=== PATIENT | female | born 1955 | race Caucasian/White ===

== ENCOUNTER 2024-03-15 02:13 | Day surgery (SDC) | payer MEDICARE, SELFPAY ==
[2024-03-11 09:23] VITALS: BMI 24.7
--- NOTE | 2024-03-11 09:32 | PC.NURSE ---
Report to the Outpatient Waiting Room, entrance under the green pavilion located off [facility], at time _0830_ on date _[id number]_. Planned Procedure Time: _1030_. Time changes happen often and if your time is changed the preop area will call you the afternoon before. - You and your visitor will be asked to self-screen and do not enter if you have any COVID symptoms. - A mask is optional within the hospital at this time. Patients may have clear liquids (water, carbonated beverages, clear teas, apple juice) until 3 hours prior to surgery with a maximum of 20 ounces. - No food from midnight until time of surgery Take the following medications with a SIP of water the morning of surgery: ___Levothyroxine and Metoprolol DO NOT STOP ANY OF YOUR OTHER PRESCRIPTION MEDICATIONS PRIOR TO SURGERY ?EXCEPT THE FOLLOWING Medications to discontinue per physician ____Katina stopped Aspirin and Naproxen [id number] Date to take last dose Please no make-up, nail lithuanian, hairspray, perfume, deodorant, or body powder the day of surgery. No jewelry (including any body piercings) or valuables the day of surgery, leave them at home. Please take a shower or bath the night before, or the morning of, surgery with an antibacterial soap. Wear comfortable, loose fitting clothing. - Jewelry must be removed prior to entering the operating room. Rings and piercings that are not removed may be cut off. - The hospital will not accept responsibility for valuables. - Please leave all valuables, including medications, at home the day of surgery. If you are going home after surgery, a licensed crude oil driver must drive you home. - NO public transportation without another adult if you receive anesthesia. - We recommend that an adult stay with you for 24 hours following discharge. - We also recommend that you do not drive, make important decision, drink alcoholic beverages, or take any drugs that were not prescribed by your health care provider for at least 24 hours after your discharge time. Follow any additional instructions given to you from your surgeon. If you or anyone in your household have experienced Covid symptoms in the past week, please notify your surgeon or the nurse liaison at the phone number below for possible testing. Telephone instructions given to _Katina__and asked if any additional questions and then verbalized understanding. Patient advised to call surgeon office or pre surgery nurse liaison [phone] if any additional questions.
--- NOTE | 2024-03-14 14:10 | WPDANESEPPF ---
Anes - Initial Pre Proc Eval Procedure: Operation Date: 03/15/24 10:30 Proposed Procedures p Right Shoulder Rotator Cuff Repair Arthroscopic, Proceed as Indicated - Margarito Alas MD Date/Time: 03/14/24 14:10 Surgeon: Margarito Alas MD Pre Op Diagnosis: partial rotator cuff tear right shoulder Patient Data Age: 68 Gender: F Height: 1.57 m Weight: 61.4 kg Allergies Allergy/AdvReac Type Severity Reaction Status Date / Time codeine Allergy Unknown Headache Verified 03/11/24 09:21 methylprednisolone AdvReac Unknown Nausea and Verified 03/11/24 09:21 Vomiting Home Medications Medication Instructions Recorded Confirmed Type amitriptyline 50 mg tablet 50 mg PO QHS 02/17/23 03/15/24 History aspirin 81 mg tablet,delayed 81 mg PO DAILY 02/17/23 03/11/24 History release losartan 50 mg tablet 50 mg PO DAILY 02/17/23 03/15/24 History atorvastatin 80 mg tablet 80 mg PO DAILY 04/22/23 03/15/24 History levothyroxine 50 mcg capsule 50 mcg PO DAILY 01/13/24 03/15/24 History metoprolol succinate 25 mg 25 mg PO DAILY 01/13/24 03/15/24 History tablet,extended release 24 hr naproxen 500 mg tablet 500 mg PO BID #60 tabs 02/26/24 03/11/24 Rx omeprazole 20 mg capsule,delayed 20 mg PO DAILY 03/11/24 03/15/24 History release Patient hx anesthesia problems: other (has low BP during anesthesia) Family hx anesthesia problems: none Results Review: All pre-operative results and documents have been reviewed as part of the pre-operative evaluation. [facility] Past Medical History Medical History Elevated serum creatinine Elevated TSH History of bruising easily History of heart attack (~2020) History of stress test History of trigger finger Kidney disease Osteoporosis Surgical History Surgical History History of appendectomy History of breast biopsy x 2 History of carpal tunnel release History of dental surgery History of left knee surgery x 2 left knee (meniscus tear) History of rotator cuff surgery Right side Family History Family History Grandparent Family history of malignant neoplasm of breast in first degree relative Social History Social History Smoking status: Never smoker Smoking end date: 08/24/01 Alcohol intake: never Substance use: never Substance use type: does not use Do You Feel Safe in your Home?: Yes Lack of Transportation: No Lack of Food: Never True Current Housing: I Have Housing Concerned About Future Housing: No Difficulty Paying Gas/Electric Bills: No Difficulty Paying for Meds: No Currently Unemployed: No Education: High School Diploma/GED Difficulty w/ Childcare or Family Care: No Living arrangements: with family Spiritual care concerns: No Anes - Eval Final PreProcedure Day of Procedure 03/14/24 14:10 Patient weight: normal Heart: regular rate and rhythm Lungs: clear to auscultation Airway: Mallampati scale class II Neurological: alert and oriented Last oral intake: >/= 8 hours ASA classification: III Emergent: no Anesthetic plan: proceed Anesthesia type and monitoring: general ETT and standard monitoring Results Review: All pre-operative results and documents have been reviewed as part of the pre-operative evaluation. Informed Consent: The patient's anesthetic plan and its attendant risks and benefits were discussed with the patient/family/POA. Questions were solicited and answers provided to the satisfaction of the patient/family/POA.
[2024-03-15] VITALS (13 sets, daily range): BP systolic 111–150; BP diastolic 48–85; PULSE 59–72; RESP 12–20; TEMP 36; O2SAT 96–100
--- NOTE | 2024-03-15 07:09 | WPDHPUPDATE1 ---
History and Physical Update Update Date/Time: 03/15/24 07:09 History and Physical has been reviewed, including an updated exam of the patient. There are NO changes in the patient's condition. Risks, benefits, and alternatives have been discussed and questions answered. Patient agrees to proceed with procedure.
[2024-03-15] MEDS: ACETAMINOPHEN 500 MG TABLET 1000 MG PO (08:48)
[2024-03-15] MEDS: LACTATED RINGERS 1,000 ML 30 ML IV CONT ×2 (08:50→13:01)
[2024-03-15] MEDS: KETOROLAC 15 MG/ML VIAL (*BKC) IV PUSH (08:52)
[2024-03-15] MEDS: ceFAZolin 2 GM/D5W 50 ML 2 GM/50 ML BAG IVPB (10:42)
[2024-03-15] MEDS: EPINEPHrine HCL INJ 1 MG/ML AMPUL 3 MG IRRIGATION (11:32)
[2024-03-15] MEDS: BUPIVACAINE/EPINEPHRINE 0.5% 10 ML VIAL 30 ML INFILTRATE (11:33)
--- NOTE | 2024-03-15 13:37 | W.PM.PROC2 ---
Procedure Note - Detailed Date of Procedure 03/15/24 Pre-op Diagnosis Partial rotator cuff tear right shoulder Post-op Diagnosis Other (Right shoulder 1. Partial rotator cuff tear 2. Subacromial impingement 3. Biceps tendinosis 4. Degenerative arthritis) Procedure Performed Right shoulder 1. Arthroscopic rotator cuff repair 2. Arthroscopic subacromial decompression 3. Arthroscopic biceps tenotomy 4. Arthroscopic humeral chondroplasty Surgeon Margarito Alas MD Mirror Finishing Machine Operator Leslie Holland PA-C Anesthesia General and Regional ( interscalene block) Findings High grade partial articular tear easily completed to a small full thickness tear. Repaired with single bone tunnel and 3 sutures. Augmented with Regeneten collagen implant. Biceps tendinosis treated with tenotomy. Large full thickness chondral defect on the posterior humerus treated with chondroplasty, and removal of multiple small loose bodies through the shaver. Modest acromioplasty. Description of Procedure Preoperative antibiotics were given. An interscalene block was administered in the preoperative area. The patient was bought brought to the operating room. A general anesthetic was administered. The patient was carefully positioned in the beach chair position. The head and neck were carefully positioned. The non operative extremity was also carefully positioned. The shoulder was prepped and draped in the usual sterile fashion. Examination was performed. Standard posterior and anterior arthroscopic portals were established. Inflow achieved with the arthroscopic pump using saline and epinephrine. The glenohumeral joint was carefully inspected. Large defect was noted on the posterior humeral condyle. This was greater than 1 cm. Full-thickness defect with significant flaps. These were debrided to a stable margin. Multiple loose bodies which appeared to have come from that area were debrided from the joint. Minimal glenoid changes and labral changes. The biceps intra-articularly was severely frayed. Biceps tenotomy was performed. The articular supraspinatus showed high-grade partial tearing. There were some intact fibers superficially. The subscapularis was intact.. Attention was turned to the subacromial space. A complete bursectomy was performed. A modest acromioplasty was performed where the bone had showed evidence of irregularity and some slight pain laterally. Previous repair sutures could be seen in the more posterior cuff. This appeared to be healed. More anteriorly, which was previously marked from the articular side, there was a very thin area that was easily debrided to a small,sub cm, full-thickness tear. There was no retraction. A single bone tunnel was placed and 3 sutures were passed into the supraspinatus. The repair appeared joya and quite anatomic. The tissue quality was reasonably good. Given the fact that this was a revision it was elected to augment the repair with the collagen Regeneten implant. The medium size fit nicely along at the tendon involved tendon and was brought laterally just abutting the lateral suture tunnel with the suture knots. The tear configuration was carefully assessed. The arthroscopic instruments were removed. The wounds were closed with 3-0 Monocryl subcuticular suture and steri strips. There were no complications. A sling was applied and the patient brought to the recovery room. Physician assistant finance manager, Leslie Holland PA-C, required for surgery; including patient positioning, draping, arthroscopic camera operation, maintaining instrument position, suture retrieval, wound closure, and dressing and sling placement. Implants Regeneten collagen implant size medium. 5 PATT soft tissue anchors and 2 peek bone anchors. Estimated Blood Loss 10 Pathology None sent Complications No immediate complications Condition Stable Disposition PACU [facility] Billing Surgery - Charge Forward: Surgery Billing
[2024-03-15] MEDS: fentaNYL CITRATE INJ (*CRX) 100 MCG/2 ML VIAL 25 MCG IV PUSH ×2 (14:02→14:15)
--- NOTE | 2024-03-15 14:10 | SUR.PHASEI ---
Dr. Tran approached about patient potentially receiving a nerve block in recovery for pain control. Stated to continue with the IV fentanyl for pain control at this time.
[2024-03-15] MEDS: HYDROcodone/acetaminophen (*CRX) 5-325 MG TABLET 1 TAB PO (15:11)
== END 2024-03-15 16:20 | disposition home or self-care (01) ==
PROVIDERS: PCP Internal Medicine Infectious Disease; Visit Provider Orthopaedic Surgery
PROC: (CPT 29805; principal; 2024-03-15 10:30)
DX: M75.111 Incomplete rotator cuff tear or rupture of right shoulder, not specified as traumatic (principal); M75.41 Impingement syndrome of right shoulder; M75.21 Bicipital tendinitis, right shoulder; M19.011 Primary osteoarthritis, right shoulder; M81.0 Age-related osteoporosis without current pathological fracture; I25.2 Old myocardial infarction; Z79.82 Long term (current) use of aspirin
CPT/HCPCS: 29827; 29826; 29823; A9270; C1713; J0171; J0690; J1885; J2250; J2371; J2405; J2704; J3010; J7120

== ENCOUNTER 2025-03-29 07:58 | Outpatient (CLI) | payer MEDICARE, SELFPAY ==
--- NOTE | ~2025-03-29 | XR_ITS ---
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 No significant joint effusion. No frac ture or traumatic malalignment. No joint effusion. Impression: 1: Mild tricompartment osteoarthritis. Reviewed, dictated and finalized at location A. Impression: 1: Mild tricompartment osteoarthritis.
--- OUTSIDE RECORDS SUMMARY | 2025-03-29 08:04 | XMS_ITS | Clinical Summary ---
Author Organization [facility] Address [address] [place] [address] Care Team Providers Care Strategic Client Executive Name Role Phone Luciano Bell MD Primary Care Provider + [phone] Rosalinda Carcamo MD Unavailable James Wayne DO Unavailable [phone] Pal Tipton MD Unavailable [phone] Allergies Active Allergy Reactions Criticality Noted Date Comments Codeine Headache Low Tolerates morphine Methylprednisolone Nausea & Vomiting Low Medications aspirin 81 mg enteric coated tablet TAKE 1 TABLET BY MOUTH EVERY DAY 90 tablet 021 Active triamcinolone (KENALOG) 0.1 % ointmentIndicatio ns:Acute vulvitis Apply topically 2 (two) times a day as needed for irritation 30 g 3 023 Active omeprazole (PriLOSEC) 20 mg capsuleIndication s:Gastroesophagea l reflux disease without esophagitis TAKE 1 CAPSULE BY MOUTH EVERY DAY 90 capsule 1 025 Active metoprolol XL (TOPROL-XL) 50 mg extended release tabletIndications :Essential hypertension TAKE 1/2 TABLET BY MOUTH DAILY 45 tablet 2 025 Active levothyroxine (SYNTHROID) 75 mcg tablet Take 1 tablet (75 mcg total) by mouth mobile tester before breakfast 30 tablet 2 025 Active losartan (COZAAR) 25 mg tablet Take 1 tablet (25 mg total) by mouth 2 (two) times a day 180 tablet 3 025 2025 Active amitriptyline (ELAVIL) 50 mg tabletIndications :Periodic headache syndrome, not intractable TAKE 1 TABLET BY MOUTH EVERY DAY AT NIGHT 90 tablet 1 025 Active atorvastatin (LIPITOR) 80 mg tabletIndications :Mixed hyperlipidemia TAKE 1 TABLET BY MOUTH EVERY DAY 90 tablet 1 025 Active atorvastatin (LIPITOR) 80 mg tabletIndications :Mixed hyperlipidemia TAKE 1 TABLET BY MOUTH EVERY DAY 90 tablet 1 025 2024 Discontinued amoxicillin (AMOXIL) 500 mg tablet/capsule Take 1 tablet/capsul e (500 mg total) by mouth 3 (three) times a day 15 tablet/caps ule 025 2024 Discontinued(P atient Reported) ciprofloxacin (CILOXAN) 0.3 % ophthalmic solutionIndicatio ns:Chronic diffuse otitis externa of right ear 7 drops into Right EAR, NOT EYE, twice daily for 14 days 10 mL 1 025 2024 Discontinued(T herapy completed) Active Problems Problem Noted Date Diagnosed Date Chronic diffuse otitis externa of right ear 04/2025 Assessment & Plan (03/22/2025 11:32 AM CDT): Film removed from the right ear today Follow up as needed Avoid ear cleaning techniques Avoid water to ears Vertigo of central origin, unspecified lateralit y 03/01/2025 Right ear pain 12/09/2024 Assessment & Plan (12/09/2024 8:46 PM CDT): DDX INCLUDE OTITIS MEDIA/ EXTERNA DC EAR DROPS ( NOT HELPING ) AMOX 500 MG PO TID FOR FIVE DAYS Benign paroxysmal positional vertigo due to bilateral vestibular disorder 06/25/2024 Assessment & Plan (12/24/2024 3:27 PM CDT): JACINTO CHHAYA ELIZALDEPayton MELISA WAS POSITIVE HEARING EVAL REVIEWED REFERRED TO ENT HABITUATION EXERCISES DISCUSSED TODAY Assessment & Plan (06/25/2024 4:22 PM CDT): EPLYS MANUORTEGAE WAS POSITIVE HABITUATION EXERCISES TAUGHT ARRANGE HEARING EVAL CAROTID DOPPLER WAS ARRANGE Right hip pain 06/25/2024 Assessment & Plan (06/25/2024 4:23 PM CDT): ARRANGE X RAY OF THE L SPINE AND RIGHT IP Acute pain of right shoulder 12/03/2023 Assessment & Plan (01/05/2024 2:16 PM CDT): Pt has f/u dr david Mri and x ray was reviewed Assessment & Plan (12/03/2023 1:32 PM CDT): For about two weeks now after a fall S/p prior rotator cuff surgery Tests and exams are c/w impingment syndrome Will arrange x ray / and PT / mri of the right shoulder Chest pain, unspecified type 10/30/2023 Hypertensive urgency 10/30/2023 Drug reaction 02/05/2022 Encounter for Medicare annual wellness exam 02/2022 Overview (10/28/2021): Added automatically from request for surgery [id number] Assessment & Plan (07/12/2024 6:33 AM COLLAR BAND CREASER): IMMUNIZATIONS WERE REVIEWED CAD CHRONIC NON OBSTRUCTING NO CHEST PAIN OR SOB GOAL LDL IS UNDER 70 ESSENTIAL HTN GOAL BP IS 130/80 OR UNDER LOW NA DIET NO COGNTIVE DECLINE NOTCIED MIXED HYPERLIDEMIA GOAL LDL IS UNDER 70 MAMMOGRAM / COLONSCOPY UPTODATE /BMD ARRANGED GERD WITHUOT ESOPHGITS ON PPI CKD STAGE 3B WITH A E GFR UNDER 60 AVOID ALL NEPHROTOXIC DRUGS Dysphagia 10/28/2021 Overview (10/28/2021): Added automatically from request for surgery [id number] Spondylosis of cervical joint without myelopathy 08/26/2021 Cervical radiculopathy 08/26/2021 Dilated cardiomyopathy 08/01/2021 Assessment & Plan (08/01/2021 9:20 AM COLLAR BAND CREASER): Initial working diagnosis was the patient may have takotsubo syndrome. However, 2-3 weeks after her hospital discharge her symptoms have persisted. I plan to re- evaluate initially with proBNP if this has not normalized we will continue to advance her systolic CHF treatments. I have doubled her Entresto dose and in the future would look at exchanging metoprolol for carvedilol, adding an aldosterone antagonist and SGLT 2 inhibitor. Takotsubo cardiomyopathy 07/17/2021 Assessment & Plan (07/17/2021 7:01 AM COLLAR BAND CREASER): Cardiac catheterization 07/16 -Left ventriculogram showed anterolateral diaphragmatic akinesis severe apical hypokinesis. This consistent takotsubo cardiomyopathy. Ejection fraction 35-40% NSTEMI (non-ST elevated myocardial infarction) 1 09/15/2020 Assessment & Plan (07/17/2021 7:03 AM COLLAR BAND CREASER): -Cardiology consulted rec. pain control, topical nitrates, beta-javi, lovenox, keep patient NPO -Echocardiogram pending -heart cath planned 07/16 -Ejection fraction is visually estimated at 35-40 %. Normal right ventricular systolic pressure. Estimated peak RVSP is 25 mmHg. Mild tricuspid regurgitation. Assessment & Plan (07/16/2021 1:21 PM COLLAR BAND CREASER): -Cardiology consulted rec. pain control, topical nitrates, beta-javi, lovenox, keep patient NPO -Echocardiogram pending -heart cath planned 07/16 Periodic headache syndrome, not intractable 06/25 Assessment & Plan (07/16/2021 1:29 PM COLLAR BAND CREASER): Continue home meds amitriptyline 75 LVH (left ventricular hypert rophy) due to hypertensive disease, without heart failure 08/01/2020 Assessment & Plan (07/16/2021 1:23 PM COLLAR BAND CREASER): History of LVH -control BP Continue home med-metoprolol 5 mg q.d. --added losartan 100 mg q.d. Essential hypertension 01/07/2014 Overview (11/26/2016): Hypertension Assessment & Plan (01/09/2025 12:46 PM CDT): Goal bp is 130/80 or under Low na diet Assessment & Plan (12/24/2024 3:28 PM CDT): GOAL BP IS 130/80 OR UNDER Assessment & Plan (06/25/2024 4:23 PM CDT): GOAL BP IS 130/80 OR UNDER Assessment & Plan (01/05/2024 2:15 PM CDT): Bp is good Goal is 130/80 or less Low na diet Assessment & Plan (07/16/2021 1:24 PM COLLAR BAND CREASER): -metoprolol 5 mg q.d. -added losartan 100 mg q.d. Assessment & Plan (08/01/2020 10:59 AM COLLAR BAND CREASER): Patient's blood pressure appears to be under adequate control with her current medical regimen. I see no need for alteration. Gastroesophageal reflux disease without esophagi tis 01/07/2014 Overview (11/26/2016): GERD (gastroesophageal reflux disease) Assessment & Plan (07/16/2021 1:24 PM COLLAR BAND CREASER): The patient has a history of GERD -pantoprazole 40 mg q.d. Mixed hyperlipidemia 01/07/2014 Overview (11/29/2016): Hyperlipidemia Assessment & Plan (01/05/2024 2:16 PM CDT): Flp and ldl is ok Lft is nl Continue liptior Assessment & Plan (07/16/2021 1:24 PM COLLAR BAND CREASER): Atorvastatin 40 mg q.d. Resolved Problems Problem Noted Date Diagnosed Date Resolved Date Occipital neuralgia of left side 08/26/2021 09/10/2021 Acute coronary syndrome with high troponin 07/16/2021 08/01/2021 Assessment & Plan (07/16/2021 1:27 PM COLLAR BAND CREASER): History of NE 15 years ago without stent placement patient only had moderate statin at home. -added high-intensity statin atorvastatin 40 mg -added losartan 100 mg -topical nitroglycerin -aspirin 324 mg Encounters Date Type Department Care Team Description 03/22/2025 11:15 AM CDT Office Visit [facility] - [address] [place] [address] Thais Stock, Chronic diffuse otitis externa of right ear (Primary Dx) 03/15/2025 3:00 PM CDT Office Visit [facility] [address] [place] [address] A [address] [place] [phone] Judy Beltran NP Skin neoplasm (Primary Dx); Nasal lesion 03/13/2025 Results Follow-Up [facility] - [address] [place] [address] Emely Maldonado MA MRI Internal Auditory Canal incl Brain W WO Contrast 03/09/2025 10:53 AM CDT - 03/09/2025 11:59 PM CDT Hospital Encounter [facility] [address] [place] [address] Vertigo of central origin, unspecified laterality Discharge Disposition: Discharge to home or self care 03/01/2025 11:15 AM CDT Office Visit [facility] - [address] [place] [address] Thais Stock, Chronic diffuse otitis externa of right ear (Primary Dx); Vertigo; Vertigo of central origin, unspecified laterality 01/26/2025 10:00 AM CDT Office Visit [facility] [employer] [facility] at [address] [place] [phone] Pal Tipton MD Dilated cardiomyopathy (HCC) (Primary Dx); Essential hypertension 01/25/2025 Telephone [facility] [address] [facility] [address] [place] [address] Luciano Bell MD 01/09/2025 10:15 AM CDT Office Visit [facility] [address] [place] [address] Luciano Bell MD Essential hypertension (Primary Dx); Mixed hyperlipidemia; Osteoporosis, unspecified osteoporosis type, unspecified pathological fracture presence 01/02/2025 9:00 AM CDT Lab [facility] [address] [place] [address] Essential hypertension 12/28/[address] [facility] [address] [place] [address] [address] [place] [address] Danielle Henrandez Au.D. Benign paroxysmal positional vertigo, unspecified laterality (Primary Dx) 12/28/[address] [facility] [address] [place] [address] 11[address] [place] [address] [place] [id number] Danielle Hernandez Au.DJanki 12/28/[address] [facility] [address] [place] [address] [address] [place] [address] [place] [phone] JavisDanielle Au.D. 12/28/2024 Telephone [facility] [address] [place] [address] Luciano Bell MD from Last 3 Months Immunizations Immunization Administration Dates Next Due Influenza, Quadrivalent, Hig h Dose, Preservative Free, Intrr 07/02/2023,07/02/2022,06/04/2021 Influenza, Quadrivalent, Spl it, Intramuscular 07/12/2015 Influenza, Quadrivalent, Spl it, Preservative Free, Intramuscular 05/28/2020 Influenza, Trivalent, High D ose, Split, Preservative Free, Intramuscular 06/24/2024 Influenza, Trivalent, IM (MDV) 06/29/2014,2012 Pfizer SARS-CoV-2 Monovalent Vaccination (12+ Yrs) PURPLE 08/13/2021,10/18/2020 Pfizer Sars-Cov-2 Bivalent V accination (12+ YRS) 07/11/2022 Pneumococcal Conjugate PCV 13 07/23/2021 Pneumococcal Polysaccharide PPV23 10/21/2022 Tdap 08/08/2013 ZOSTER Recombinant 12/02/2024 Surgical History Surgery Date Site/Laterality Comments TRIGGER FINGER RELEASE 2 times CARPAL TUNNEL RELEASE 08/24/1999 - 08/23/2000 BREAST BIOPSY twice, for benign lumps TUBAL LIGATION 08/24/1979 - 08/23/1980 SOFT TISSUE CYST EXCISION 08/24/2004 - 08/23/2005 Right wrist cyst ROTATOR CUFF REPAIR 08/24/2001 - 08/23/2002 Right KNEE ARTHROSCOPY 08/24/2014 - 08/23/2015 Bilateral internal derangement of the knees: arthroscopic surgeries in each knee LAPAROSCOPIC APPENDECTOMY 08/24/2015 - 08/23/2016 APPENDECTOMY CARDIAC CATHETERIZATION COLONOSCOPY 07/24/2017 - 08/23/2017 Medical History Medical History Date Comments Hypertension Migraine headache GERD (gastroesophageal reflux disease) Hyperlipidemia Myocardial infarction (HCC) 07/2021 Dysphagia Family History Medical History Relation Name Comments Coronary artery disease Father Stu Heart attack Father Stu Hypertension Father Stu Prostate cancer Father Stu COD Breast cancer Maternal Grandmother Emphysema Mother Osteoporosis Mother Other Sister 1 Coronary artery disease Sister 2 Relation Name Status Comments Father Stu Maternal Grandmother Mother Sister 1 Sister 2 Social History Tobacco Use Types Packs/Day Years Used Date Smoking Tobacco: Former Cigarettes Q uit: 2001 Smokeless Tobacco: Never Tobacco Cessation:Counseling Given: Not Answered Alcohol Use Standard Drinks/Week Comments Not Currently 0 (1 standard drink = 0.6 oz pur e alcohol) AUDIT-C Answer Date Recorded Q1: How often do you have a drink containing alcohol? Never 02/05/2022 Q2: How many drinks containi ng alcohol do you have on a typical day when you are drinking? Patient does not drink Q3: How often do you have si x or more drinks on one occasion? Never 02/05/2022 PHQ-2 Answer Date Recorded PHQ-2 Total Score (If total score is 3 or more points, staff should administer the PHQ-9) 1 07/11/2024 Personal Safety Answer Date Recorded Have you ever been in or are you currently in a harmful physical or emotional relationship or is someone making you feel afraid or unsafe? Denies 10/29/2023 Comments No Sex and Gender Information Value Date Recorded Sex Assigned at Not on file Legal Sex Female 1:05 PM COLLAR BAND CREASER Gender Identity Not on file Sexual Orientation Not on file Occupation Industry Job Start Date Job End Date homemaker Not on file Not on file Not on file Obstetrics History Para Term AB IAB SAB Ectopic Multiple Livin g Live Births 2 2 2 0 0 0 0 0 0 2 2 Date Outcome GA Total Labor Labor/2nd/3rd Weight Sex Type Anes PTL Diane A1 A5 Name Clin Term Term Last Filed Vital Signs Vital Sign Reading Time Taken Comments Blood Pressure 111/67 03/01/2025 10:57 AM CDT Pulse 78 03/01/2025 10:57 AM CDT Temperature 36.9 C (98.4 F) 01/09/2025 10:23 AM CDT Respiratory Rate 18 03/01/2025 10:57 AM CDT Oxygen Saturation 92% 03/01/2025 10:57 AM CDT Inhaled Oxygen Concentration - - Weight 60.3 kg (133 lb) 03/22/2025 11:02 AM CDT Height 154.9 cm (5' 0.98) 03/22/2025 11:02 AM C DT Body Mass Index 25.14 03/22/2025 11:02 AM CDT Plan of Treatment Health Maintenance Due Date Last Done Comments Hepatitis C Screening 1955 Hepatitis B Screening 11/11/1973 DTaP/Tdap/Td Vaccine (2 - Td or Tdap) 08/08/2023 08/08/2013 Covid-19 Vaccine (2023-2 5 season) 2024 08/03/2023, 07/11/2022, 08/13/2021, Additional history exists Influenza Vaccine (#1) 2025 , 07/02/2023, 07/02/2022, Additional history exists Depression Screening 07/11/2025 07/11/2024, 06/24/2024, 10/21/2022 Fall Risk Assessment 07/11/2025 07/11/2024, 10/30/2023, 10/21/2022 Well Visit 65+ 07/11/2025 07/11/2024, 09/25, 08/26/2021, Additional history exists Breast Cancer Screening-Mammogram 09/06/2025 09/06/2024, 08/13/2023, 08/11/2022 Osteoporosis Screening-Bone Density Scan 08/26/2026 08/26/2024, 07/01/2022 Colon Cancer Screening-Colonoscopy 12/20/2031 12/19/2021, 06/09/2016, 06/09/2016 Colon Cancer Screening-CT Colonography Discontinued 12/19/2021, 06/09/2016, 06/09/2016 Colon Cancer Screening-DNA Stool Discontinued 12/19/2021, 06/09/2016, 06/09/2016 Colon Cancer Screening-FIT Discontinued 12/19, 06/09/2016, 06/09/2016 Colon Cancer Screening-Sigmoidoscopy Discontinued 12/19/2021, 06/09/2016, 06/09/2016 Pneumococcal vaccine 65+ Completed 10/21/2022, 06/26 Zoster Vaccine Completed 02/02/2025, 12/02/2024 Procedures Procedure Name Priority Date/Time Associated Diagnosis Comments MRI INTERNAL AUDITORY CANAL INCL BRAIN W WO CONTRAST Schedule Routine, Read Routine (OP Routine) 03/09/2025 11:48 AM CDT Vertigo of central origin, unspecified laterality ECG 12-LEAD Routine 01/26/2025 10:02 AM CDT Dilated cardiomyopathy (HCC) Essential hypertension EGFR Routine 01/02/2025 8:51 AM CDT Essential hypertension DIFFERENTIAL AUTO Routine 01/02/2025 8:5 1 AM CDT Essential hypertension CBC WITH AUTO DIFFERENTIAL Routine 01/02/2025 8:51 AM CDT Essential hypertension COMPREHENSIVE METABOLIC PANEL Routine 01/02/2025 8:51 AM CDT Essential hypertension LIPID PANEL Routine 01/02/2025 8:51 AM CDT Essential hypertension TSH Routine 01/02/2025 8:51 AM CDT Essential hypertension SCREENING MAMMOGRAM BILATERAL W LELAND Schedule Routine, Read Routine (OP Routine) 09/06/2024 9:21 AM COLLAR BAND CREASER Encounter for screening mammogram for breast cancer DEXA AXIAL SKELETON BONE DENSITY 1 OR MORE SITES Schedule Routine, Read Routine (OP Routine) 08/26/2024 12:30 PM COLLAR BAND CREASER Menopause COLONOSCOPY 12/19/2021 10:00 AM CDT from Last 3 Months or Most Recently Relevant to Health Maintenance Results * MRI Internal Auditory Canal incl Brain W WO Contrast (03/09/2025 11:48 AM CDT) Anatomical Region Laterality Modality Head and Neck N/A Magnetic Resonan ce 03/09/2025 11:5 8 AM CDT Narrative 03/09/2025 12:04 PM CDT EXAM DESCRIPTION: MRI BRAIN WITHOUT AND WITH CONTRAST (IAC PROTOCOL) REASON FOR STUDY: Patient reports chronic vertigo since right ear infection July 2024. No provided focal neurologic deficits. No provided history of trauma. No provided past medical or surgical history. TECHNIQUE: Multiplanar imaging includes non-contrasted T1, T2, FLAIR, gradient echo/susceptibility-weighted images, diffusion with ADC map and post gadolinium contrast sequences. Additional thin slice images with and without gadolinium contrast acquired in the posterior fossa. Images stored on PACS. CONTRAST TYPE/DOSE: 12 mL Dotarem injected via IV site without reported incident. COMPARISON: CT head without contrast 11/03/2024 and 10/29/2023; DEXA scan 08/26/2024: Reported as osteoporosis; FINDINGS: IAC's: No vestibular schwannoma. Normal cerebellopontine angles. CEREBRUM: No acute intra-axial hemorrhage. No edema, mass effect, midline shift, or herniation. No abnormal enhancement. Slight senescent mineralization of the lentiform nuclei. WHITE MATTER: There is mild periventricular-subcortical T2/FLAIR hyperintense white matter disease, nonspecific, though likely secondary to chronic microvascular ischemia. POSTERIOR FOSSA: Brainstem and cerebellum are unremarkable. No abnormal enhancement. DIFFUSION IMAGING: No restricted diffusion to suggest acute/subacute ischemia or infarct. EXTRAAXIAL SPACES: No extra-axial fluid collection. No extra-axial mass. No abnormal enhancement. BRAIN VOLUME: Mild cerebral volume loss without predilection. PITUITARY: Unremarkable. VASCULATURE: No flow disturbance evident. CALVARIUM: Unremarkable. ORBITS: No acute abnormality. Ocular lenses and globes normal in conformation and position. PARANASAL SINUSES AND MASTOIDS: No significant mucosal thickening and no fluid levels of the paranasal sinuses. Mastoid air cells well aerated. OTHER: No other significant finding. IMPRESSION: No acute intracranial process with chronic findings on MRI brain with attention to the IAC's. THIS IS AN ELECTRONICALLY VERIFIED FINAL REPORT 03/09/2025 12:04 PM - Electronically signed by Dewayne Shi M.D. JCARLOS: JCARLOS Report ID: [id number] Reading Location: [id number] Procedure Note Dewayne Shi MD - 03/09/2025 EXAM DESCRIPTION: MRI BRAIN WITHOUT AND WITH CONTRAST (IAC PROTOCOL) REASON FOR STUDY: Patient reports chronic vertigo since right earinfection July 2024. No provided focal neurologic deficits. No providedhistory of trauma. No provided past medical or surgical history. TECHNIQUE: Multiplanar imaging includes non-contrasted T1, T2, FLAIR,gradient echo/susceptibility-weighted images, diffusion with ADC map and post gadolinium contrast sequences. Additional thin slice images with andwithout gadolinium contrast acquired in the posterior fossa. Images stored onPACS. CONTRAST TYPE/DOSE: 12 mL Dotarem injected via IV site withoutreported incident. COMPARISON: CT head without contrast 11/03/2024 and 10/29/2023; DEXAscan 08/26/2024: Reported as osteoporosis; FINDINGS: IAC's: No vestibular schwannoma. Normal cerebellopontine angles. CEREBRUM: No acute intra-axial hemorrhage. No edema, mass effect,midline shift, or herniation. No abnormal enhancement. Slight senescent mineralization of the lentiform nuclei. WHITE MATTER: There is mild periventricular-subcortical T2/FLAIR hyperintense white matter disease, nonspecific, though likely secondaryto chronic microvascular ischemia. POSTERIOR FOSSA: Brainstem and cerebellum are unremarkable. No abnormal enhancement. DIFFUSION IMAGING: No restricted diffusion to suggest acute/subacute ischemia or infarct. EXTRAAXIAL SPACES: No extra-axial fluid collection. No extra-axialmass. No abnormal enhancement. BRAIN VOLUME: Mild cerebral volume loss without predilection. PITUITARY: Unremarkable. VASCULATURE: No flow disturbance evident. CALVARIUM: Unremarkable. ORBITS: No acute abnormality. Ocular lenses and globes normal in conformation and position. PARANASAL SINUSES AND MASTOIDS: No significant mucosal thickening and no fluid levels of the paranasal sinuses. Mastoid air cells well aerated. OTHER: No other significant finding. IMPRESSION: No acute intracranial process with chronic findings on MRI brain with attention to the IAC's. THIS IS AN ELECTRONICALLY VERIFIED FINAL REPORT 03/09/2025 12:04 PM - Electronically signed by Dewayne Shi M.D. JCARLOS: JCARLOS Report ID: [id number] Reading Location: [place] [address] Thais Stock DO IMG MRI PROCEDURES Final Res ult * ECG 12 lead (01/26/2025 10:02 AM CDT) Pal Tipton MD ECG ORDERABLES Final Result * (ABNORMAL) eGFR (01/02/2025 8:51 AM CDT) eGFR 47(L) >=60 mL/min/1. 73 m2 Comment: Interpretive Data Reference Interval Normal >/= 90 mL/min/1.73m2 Mildly decreased* 60 - 89 mL/min/1.73m2 Mildly to moderately decreased 45 - 59 mL/min/1.73m2 Moderately to severely decreased 30 - 44 mL/min/1.73m2 Severely decreased 15 - 29 mL/min/1.73m2 Kidney Failure < 15 mL/min/1.73m2 *Relative to young adult level Estimated glomerular filtration rate is determined by the 2020 CKD-EPI equation recommended by the National Kid[employer] (A Unifying Approach to GFR Estimation: Recommendations of the NKF-ASK Task Force on Reassessing the Inclusion of Race in Diagnosing Kidney Disease, JASN 2020). The CKD-EPI equation should not be used for patients with unstable renal function and has not been validated in children and those over 70. Current interpretive data was last reviewed 2021. Testing performed by: [address] [address] Blood 01/02/2025 8:51 AM CDT 01/02/2025 3:44 PM CDT us Luciano Bell MD LAB BLOOD ORDERABLES Final Result [address] Department [place] [address] * Differential, auto (01/02/2025 8:51 AM CDT) Neutrophil abs 3.58 1.50 - 6.50 K/cumm Comment:Testing performed by : [address] [address] Imm gran abs 0.02 0.00 - 0.10 K/cumm [facility] Comment:Testing performed by : [address] [address] Lymphocyte abs 1.75 0.80 - 3.30 K/cumm [facility] Comment:Testing performed by : [address] [address] Monocyte abs 0.50 0.20 - 0.80 K/cumm [facility] Comment:Testing performed by : [address] [address] Eosinophil abs 0.29 0.00 - 0.50 K/cumm [facility] Comment:Testing performed by : [address] [address] Basophil abs 0.07 0.00 - 0.10 K/cumm [facility] Comment:Testing performed by : [address] [address] Neutrophil pct 57.6 % CERNER Comment: Interpretive Data Percent cell count reference ranges are not reported, since discordance with absolute values may lead to misinterpretation of CBC data. Current Interpretive Data was last revised on 2017. Testing performed by: [address] [address] Imm gran pct 0.3 % CERNER Comment: Interpretive Data Percent cell count reference ranges are not reported, since discordance with absolute values may lead to misinterpretation of CBC data. Current Interpretive Data was last revised on 2017. Testing performed by: [facility], [address] [place] [address]., [address] Lymphocyte pct 28.2 % CERNER Comment: Interpretive Data Percent cell count reference ranges are not reported, since discordance with absolute values may lead to misinterpretation of CBC data. Current Interpretive Data was last revised on 2017. Testing performed by: [address] [address] Monocyte pct 8.1 % CERNER Comment: Interpretive Data Percent cell count reference ranges are not reported, since discordance with absolute values may lead to misinterpretation of CBC data. Current Interpretive Data was last revised on 2017. Testing performed by: [facility], [address] [place] [address]., [address] Eosinophil pct 4.7 % CERNER Comment: Interpretive Data Percent cell count reference ranges are not reported, since discordance with absolute values may lead to misinterpretation of CBC data. Current Interpretive Data was last revised on 2017. Testing performed by: [address] [address] Basophil pct 1.1 % CERNER Comment: Interpretive Data Percent cell count reference ranges are not reported, since discordance with absolute values may lead to misinterpretation of CBC data. Current Interpretive Data was last revised on 2017. Testing performed by: [address] [address] Blood 01/02/2025 8:51 AM CDT 01/02/2025 1:55 PM CDT us Luciano Bell MD LAB BLOOD ORDERABLES Final Result MORALES RASHID Andrey Reddy Department [place] [address] * (ABNORMAL) CBC with auto differential (01/02/2025 8:51 AM CDT) WBC 6.21 3.80 - 9.90 K/cumm Comment:Testing performed by : [address], [address] Hgb 11.7(L) 11.9 - 15.5 g/dL CERNER CH Comment:Testing performed by : [address], [address] Hct 38.0 35.6 - 45.5 % CERNER CH Comment:Testing performed by : [address], [address] Plt 235 150 - 400 K/cumm CERNER CH Comment:Testing performed by : [address], [address] MPV 9.4 9.1 - 12.3 fL CERNER CH Comment:Testing performed by : [address], [address] RBC 4.30 3.90 - 5.20 M/cumm CERNER CH Comment:Testing performed by : [address], [address] MCV 88.4 81.3 - 96.4 fL CERNER CH Comment:Testing performed by : [address], [address] MCH 27.2 27.1 - 33.3 pg CERNER CH Comment:Testing performed by : [address], [address] MCHC 30.8(L) 32.3 - 35.7 g/dL CERNER CH Comment:Testing performed by : [address], [address] RDW CV 14.9 11.1 - 14.9 % CERNER CH Comment:Testing performed by : [address], [address] RDW SD 47.9 35.7 - 48.1 fL CERNER CH Comment:Testing performed by : [address], [address] NRBC abs 0.00 0.00 - 0.01 K/cumm CERNER CH Comment:Testing performed by : [address], [address] Blood 01/02/2025 8:51 AM CDT 01/02/2025 1:55 PM CDT Luciano Bell MD LAB BLOOD ORDERABLES Final Result Performing Organization Address City/[facility] Co de Phone Number MORALES [address] [facility] [place] [address] * (ABNORMAL) TSH (01/02/2025 8:51 AM CDT) Thyroid Stimulating Hormone 4.55(H) 0.30 - 4.20 mcIUnit/mL Comment:Testing performed by : [facility], [address] [place] [address]., [address] Blood 01/02/2025 8:51 AM CDT 01/02/2025 1:55 PM CDT Luciano Bell MD LAB BLOOD ORDERABLES Final Result Performing Organization Address [facility] de Phone Number MORALES [facility] Department [place] [address] * Lipid panel (01/02/2025 8:51 AM CDT) Cholesterol 167 30 - 199 mg/dL Comment: Interpretive Data Ages < or = 19 years Acceptable: <170 mg/dL Borderline high: 170-199 mg/dL High: >or= 200 mg/dL Ages > or = 20 years Desirable: <200 mg/dL Borderline high: 200-239 mg/dL High: >or= 240 mg/dL Literature References: 1. Expert Panel on Integrated Guidelines for Cardiovascular Health and Risk Reduction in Children and Adolescents. Pediatrics 2011;128:S213 2. NCEP Expert Panel. Circulation 2004;110:227 Current Interpretive Data was last revised on 2018. Testing performed by: [facility], [address] [place] [address]., [address] Triglycerides 129 <=149 mg/dL MORALES Comment: Interpretive Data Ages < or = 9 years Acceptable: <75 mg/dL Borderline high: 75-99 mg/dL High: >or= 100 mg/dL Ages 10 to 20 years Acceptable: <90 mg/dL Borderline high: 90-129 mg/dL High: >or= 130 mg/dL Ages > or = 20 years Desirable: <150 mg/dL Borderline high: 150-199 mg/dL High: 200-499 mg/dL Very high: >or= 499 mg/dL Literature References: 1. Expert Panel on Integrated Guidelines for Cardiovascular Health and Risk Reduction in Children and Adolescents. Pediatrics 2011;128:S213 2. NCEP Expert Panel. Circulation 2004;110:227 Current Interpretive Data was last revised on 2018. Testing performed by: [address] [address] HDL 40 >=40 mg/dL [facility] Comment: Interpretive Data Ages < or = 19 years Acceptable: >45 mg/dL Borderline low: 40-45 mg/dL Low: <40 mg/dL Ages > or = 20 years Desirable: >or= 60 mg/dL Low: <40 mg/dL Literature References: 1. Expert Panel on Integrated Guidelines for Cardiovascular Health and Risk Reduction in Children and Adolescents. Pediatrics 2011;128:S213 2. NCEP Expert Panel. Circulation 2004;110:227 Current Interpretive Data was last revised on 2018. Testing performed by: [address] [address] LDL, calculated 104 <=129 mg/dL MORALES Comment: Interpretive Data Ages < or = 19 years Acceptable: <110 mg/dL Borderline high: 110-129 mg/dL High: >or= 130 mg/dL Ages > or = 20 years Optimal: <100 mg/dL Near optimal: 100-129 mg/dL Borderline high: 130-159 mg/dL High: >160 mg/dL Calculated using the Gamaliel LDL-C estimating equation. This equation was implemented on 2024. Prior to this date LDL-C was estimated using the Friedewald equation. Literature References: 1. Expert Panel on Integrated Guidelines for Cardiovascular Health and Risk Reduction in Children and Adolescents. Pediatrics 2011;128:S213 2. NCEP Expert Panel. Circulation 2004;110:227 3. Gamaliel Stone al. JOSSE Cardiol. 2020 December 22;5(5):540-548. doi: 10.1001/jamacardio.2020.0013 Current Interpretive Data was last revised on 2024. Testing performed by: [address] [address] Non-HDL Cholesterol 127 mg/dL CERNER CH Comment: Interpretive Data Ages < or = 19 years Acceptable: <120 mg/dL Borderline high: 120-144 mg/dL High: >145 mg/dL Ages > or = 20 years When triglycerides are >200 mg/dL, Non-HDL cholesterol is a secondary target of therapy with treatment goals that are 30 mg/dL greater than the LDL cholesterol target. Literature References: 1. Expert Panel on Integrated Guidelines for Cardiovascular Health and Risk Reduction in Children and Adolescents. Pediatrics 2011;128:S213 2. NCEP Expert Panel. Circulation 2004;110:227 Current Interpretive Data was last revised on 2018. Testing performed by: [address] [address] Chol/HDL ratio 4 CERNER Comment:Testing performed by : [address] [address] Blood 01/02/2025 8:51 AM CDT 01/02/2025 1:55 PM CDT us Luciano Bell MD LAB BLOOD ORDERABLES Final Result [address] Department [place] [address] * (ABNORMAL) Comprehensive metabolic panel (01/02/2025 8:51 AM CDT) Sodium 140 135 - 145 mmol/L Comment:Testing performed by : [address] [address] Potassium, pl 4.1 3.3 - 4.9 mmol/L CERNER Comment:Testing performed by : [address] [address] Chloride 105 97 - 110 mmol/L CERNER CH Comment:Testing performed by : [address] [address] CO2 27 22 - 32 mmol/L CERNER CH Comment:Testing performed by : [address] [address] Anion gap 8 2 - 15 mmol/L CERNER CH Comment:Testing performed by : [address] [address] BUN 14 6 - 25 mg/dL CERNER CH Comment:Testing performed by : [address] [address] Creatinine 1.25(H) 0.60 - 1.10 mg/dL CERNER CH Comment:Testing performed by : [address] [address] Glucose 88 70 - 199 mg/dL CERNER CH Comment: Interpretive Data Fasting glucose >/= 126 mg/dl is diagnostic for diabetes. Fasting is defined as no caloric intake for at least 8 hours. Fasting glucose between 100 mg/dl to 125 mg/dl is diagnostic of prediabetes. In a patient with classic symptoms of hyperglycemia or hyperglycemic crisis, a random glucose >/= 200 mg/dl is diagnostic for diabetes. In the absence of unequivocal hyperglycemia, results should be confirmed by repeat testing. The classification and Diagnosis of Diabetes Diabetes Care 2021; 46: S19-S40. Current interpretive data was last revised 2022. Testing performed by: [address] [address] Calcium 9.3 8.5 - 10.3 mg/dL CERNER CH Comment:Testing performed by : [address] [address] Bilirubin, total 0.4 0.1 - 1.2 mg/dL CERNER CH Comment:Testing performed by : [address] [address] Protein, pl 7.4 6.5 - 8.5 g/dL CERNER CH Comment:Testing performed by : [address] [address] Albumin 3.7 3.5 - 5.0 g/dL CERNER CH Comment:Testing performed by : [address] [address] Alk phos 164(H) 40 - 130 Units/L CERNER CH Comment:Testing performed by : [address], [address] ALT 25 7 - 45 Units/L CERNER CH Comment:Testing performed by : [address], [address] AST 45 10 - 45 Units/L MORALES RASHID Comment:Testing performed by : [facility], [id number] [place] [address], [place]., [address] Blood 01/02/2025 8:51 AM CDT 01/02/2025 1:55 PM CDT Luciano Bell MD LAB BLOOD ORDERABLES Final Result MORALES RASHID [id number] [facility] Department of Laboratories [place] [id number] * Screening Mammogram Bilateral W [place] (09/06/2024 9:21 AM COLLAR BAND CREASER) Anatomical Region Laterality Modality Breast Bilateral Mammography 09/06/2024 9:40 AM COLLAR BAND CREASER Impressions 09/06/2024 9:40 AM COLLAR BAND CREASER There is no mammographic evidence of malignancy. A 1 year screening mammogram is recommended. BI-RADS: 1 - Negative. The patient has been or will be contacted. The patient will be entered into a reminder system with a target due date of 1 year for her next mammogram. Electronically signed by: Marybeth Pulido M.D. Narrative 09/06/2024 9:40 AM COLLAR BAND CREASER EXAMINATION: SCREENING MAMMOGRAM BILATERAL W LELAND ORDERING HEALTHCARE PROVIDER: LUCIANO BELL HISTORY: Routine screening mammography. COMPARISON: 08/13/2023, 08/11/2022, 04/23/2021, 01/10/2020 TECHNIQUE: CC and MLO views of the bilateral breasts were obtained with digital technique using breast tomosynthesis with C view. Computer aided detection was utilized. FINDINGS: DENSITY: There are scattered areas of fibroglandular density. BREASTS: There are no suspicious masses, suspicious calcifications, or other suspicious findings in either breast. There has been no suspicious interval change. Luciano Bell MD IMG MAMMO PROCEDURES Final Result * Dexa Axial Skeleton Bone Density 1 or 2 Site (08/26/2024 12:30 PM COLLAR BAND CREASER) Anatomical Region Laterality Modality Body N/A Other 08/28/2024 9:07 AM COLLAR BAND CREASER Narrative 08/28/2024 9:07 AM COLLAR BAND CREASER EXAM DESCRIPTION: DEXA AXIAL SKELETON BONE DENSITY 1 OR MORE SITES REASON FOR STUDY: 68 y/o year old F with given history of: Menopause Osteoporosis screening Post menopausal Informatics Manager/Model: [email or web address] SL (S/N [id number]) CLINICAL INFORMATION: Current height: 62 inches Maximum height: 62.5 inches Weight: 140 pounds Risk factors: Postmenopausal COMPARISON: 07/01/2022 FINDINGS: AP LUMBAR SPINE L1-L4: Total BMD is 0.812 g/cm2 T-score is -2.1 This is decreased in comparison to prior exam which is statistically significant. LEFT HIP: Total BMD is 0.649 g/cm2 T-score is -2.4 This is decreased in comparison to prior exam which is not statistically significant. Femoral neck BMD is 0.548 g/cm2 T-score is -2.7 FRAX: FRAX not reported due to T-scores of hip, femoral neck and/or spine being at or below -2.5 (Osteoporosis). IMPRESSION: Osteoporosis. REFERENCE: Bone mineral density: T-Score: Normal (T-score above or = -1.0) Low bone mass (T-score between -1.0 and -2.5) replaces the previously used term osteopenia Osteoporosis (T-score = or below -2.5) Z-Score: Within the expected range for age (Z-score above -2.0) Below the expected range for age (Z-score is -2.0 or below) Please see below follow up recommendations. Medical evaluation for secondary causes of low bone mineral density may be appropriate. FRAX is a World Health Organization validated fracture risk assessment tool that calculates a person's 10 year probability of a major osteoporosis related fracture and hip fracture. According to the National Osteoporosis Foundation guidelines, postmenopausal women and men age 50 or older with low bone mass and a 10 year probability of a major osteoporosis related fracture = or greater than 20% or a 10 year probability of a hip fracture = or greater than 3% should be considered for pharmacological treatment for the prevention of osteoporosis. For further information, including treatment recommendations, please refer to the 2019 ISCD Official Positions (http://www.iscd.org) and the NOF's Clinician's Guide to Prevention and Treatment of Osteoporosis (http://www.nof.org/professionals/clinical-guidelines) THIS IS AN ELECTRONICALLY VERIFIED FINAL REPORT 08/28/2024 9:07 AM - Electronically signed by Myron Hanna M.D. MF: [email or web address] Report ID: [id number] Reading Location: [place] [address] Procedure Note Myron Hanna MD - 08/28/2024 EXAM DESCRIPTION: DEXA AXIAL SKELETON BONE DENSITY 1 OR MORE SITES REASON FOR STUDY: 68 y/o year old F with given history of: Menopause Osteoporosis screening Post menopausal Informatics Manager/Model: [employer] SL (S/N [id number]) CLINICAL INFORMATION: Current height: 62 inches Maximum height: 62.5 inches Weight: 140 pounds Risk factors: Postmenopausal COMPARISON: 07/01/2022 FINDINGS: AP LUMBAR SPINE L1-L4: Total BMD is 0.812 g/cm2 T-score is -2.1 This is decreased in comparison to prior exam which is statistically significant. LEFT HIP: Total BMD is 0.649 g/cm2 T-score is -2.4 This is decreased in comparison to prior exam which is not statistically significant. Femoral neck BMD is 0.548 g/cm2 T-score is -2.7 FRAX: FRAX not reported due to T-scores of hip, femoral neck and/or spine beingat or below -2.5 (Osteoporosis). IMPRESSION: Osteoporosis. REFERENCE: Bone mineral density: T-Score: Normal (T-score above or = -1.0) Low bone mass (T-score between -1.0 and -2.5) replaces thepreviously used term osteopenia Osteoporosis (T-score = or below -2.5) Z-Score: Within the expected range for age (Z-score above -2.0) Below the expected range for age (Z-score is -2.0 or below) Please see below follow up recommendations. Medical evaluation forsecondary causes of low bone mineral density may be appropriate. FRAX is a World Health Organization validated fracture risk assessmenttool that calculates a person's 10 year probability of a major osteoporosisrelated fracture and hip fracture. According to the National OsteoporosisFoundation guidelines, postmenopausal women and men age 50 or older with low bonemass and a 10 year probability of a major osteoporosis related fracture = or greater than 20% or a 10 year probability of a hip fracture = or greaterthan 3% should be considered for pharmacological treatment for the preventionof osteoporosis. For further information, including treatment recommendations, please referto the 2019 ISCD Official Positions (http://www.iscd.org) and the NOF's Clinician's Guide to Prevention and Treatment of Osteoporosis (http://www.nof.org/professionals/clinical-guidelines) THIS IS AN ELECTRONICALLY VERIFIED FINAL REPORT 08/28/2024 9:07 AM - Electronically signed by Myron Hanna M.D. MF: YARELY Report ID: [id number] Reading Location: [place] [address] us Luciano Bell MD IMG DXA PROCEDURES Final R esult * COLONOSCOPY (12/19/2021 10:00 AM CDT) Anatomical Region Laterality Modality Other Narrative Procedure Note Mathieu Mccoy MD - 12/19/2021 10:00 AM CDT [facility] [[email or web address] Patient Name: Katina Hurst Procedure Date: 12/19/2021 10:00 AM Date of : 1955 Admit Type: Outpatient Age: 66 Gender: Female Attending MD: Mathieu Mccoy M.D. Room: [facility] ENDOSCOPY ROOM 2 Note Status: Finalized Patient Profile: Refer to note in patient chart for documentation of history and physical. Procedure: Colonoscopy Indications: Screening for colorectal malignant neoplasm, Last colonoscopy: July 2017 Referring MD: Luciano Bell M.D. Providers: Mathieu Mccoy M.D. Impression: - Hemorrhoids found on perianal exam. - Diverticulosis in the sigmoid colon. - The examination was otherwise normal. - No specimens collected. Recommendation: - Discharge patient to home. - Resume previous diet. - Continue present medications. - Repeat colonoscopy in 10 years for screening purposes. - Return to primary care physician as previously scheduled. Medicines: Propofol per Anesthesia Complications: No immediate complications. Estimated Blood Loss: Estimated blood loss: none. Procedure: Pre-Anesthesia Assessment: - This assessment was completed [Time ofAssessment] prior to the administration of sedation. The benefits, risks and alternatives of theprocedure and sedation were discussed and informed consentwas obtained. All questions were answered. Please referto the signed informed consent document in the medical record. The bowel preparation used was Miralax via single dose instruction. The bowel preparation used was bisacodyl tablets via single dose instruction.The scope was passed under direct vision. TheColonoscope [id number] was introduced through the anus and advanced to the the cecum, identified by appendiceal orifice and ileocecal valve. The colonoscopy was performed without difficulty. The patient tolerated the procedure well. The qualityof the bowel preparation was excellent. The ileocecal valve, appendiceal orifice, and rectum were photographed. Findings: Hemorrhoids were found on perianal exam. Multiple small and large-mouthed diverticula were found in thesigmoid colon. The exam was otherwise without abnormality. Electronically signed by Mathieu Mccoy M.D. Mathieu Mccoy M.D. 12/19/2021 11:12:26 AM Number of Addenda: 0 Note Initiated On: 12/19/2021 10:00 AM Procedure Code(s): --- Professional --- G0121, Colorectal cancer screening; colonoscopy on individual not meeting criteria for high risk Diagnosis Code(s): --- Professional --- K57.30, Diverticulosis of large intestine without perforation orabscess without bleeding K64.9, Unspecified hemorrhoids Z12.11, Encounter for screening for malignant neoplasm of colon CPT copyright 2020 [employer]. All rights reserved. The codes documented in this report are preliminary and upon pasta maker reviewmay be revised to meet current compliance requirements. Recognized by the [employer] for promoting quality in endoscopy Mathieu Mccoy MD ENDOSCOPY PROCEDURES Final Re sult from Last 3 Months or Most Recently Relevant to Health Maintenance Insurance [id number] [place] [address] MEDICARE [facility] MEDICARE [facility] Advance Directives For more information, please contact: [phone] * Full Code (Latest Code Status on File) Date Activated Date Inactivated Comments 10/30/2023 5:50 AM 10/30/2023 7:44 PM * Full Code Date Activated Date Inactivated Comments 02/05/2022 3:54 PM 02/07/2022 6:21 PM * Full Code Date Activated Date Inactivated Comments 12/19/2021 10:01 AM 12/19/2021 4:06 PM * Full Code Date Activated Date Inactivated Comments 07/16/2021 10:55 AM 07/17/2021 3:47 PM Care Teams Strategic Client Executive Relationship Specialty Start Date End Date Luciano Bell MD [address] [place] [address] PCP - General 11/21/16 Rosalinda Carcamo MD [address] [place] [address] Hoop Flaring Machine Operator Helper Obstetrics and Gynecology 12/17/18 James Wayne DO [address] [facility] [address] [place] [address] Consulting Physician Cardiovascular Disease 07/17/21 Pal Tipton MD [address] [facility] [address] [place], [place] [address], [place] [address] Consulting Physician Cardiology 02/07/22
--- OUTSIDE RECORDS SUMMARY | 2025-03-29 08:04 | XMS_ITS | Encounter Summary ---
Author Organization [facility] Address [address] [place] [address] Phone Care Team Providers Care Box Attacher Name Role Phone Luciano Bell MD Primary Care Provider + [phone] Rosalinda Carcamo MD Unavailable James Wayne DO Unavailable [phone] Pal Tipton MD Unavailable [phone] Kaylynn Prater MA Unavailable [phone] Encounter Details Date Type Department Care Team (Late st Contact Info) Description 01/30/2022 Orders Only [facility] [address] [place] [address] Scanning, Provider Social History Tobacco Use Types Packs/Day Years Used Date Smoking Tobacco: Former Cigarettes Q uit: 2000 Smokeless Tobacco: Never Alcohol Use Standard Drinks/Week Comments Not Currently 0 (1 standard drink = 0.6 oz pur e alcohol) AUDIT-C Answer Date Recorded Q1: How often do you have a drink containing alc ohol? Never 07/16/2021 Average Number of Drinks Not on file 021 Q3: How often do you have si x or more drinks on one occasion? Never 07/16/2021 Comments No Sex and Gender Information Value Date Recorded Sex Assigned at Not on file Legal Sex Female 1:05 PM PNEUMATIC TESTER MECHANIC Gender Identity Not on file Sexual Orientation Not on file Occupation Industry Job Start Date Job End Date homemaker Not on file Not on file Not on file documented as of this encounter Plan of Treatment Not on file documented as of this encounter Procedures Procedure Name Priority Date/Time Associated Diagnosis Comments SCAN - RADIOLOGY/IMAGING 01/30/2022 documented in this encounter Results * SCAN - RADIOLOGY/IMAGING (01/30/2022) Anatomical Region Laterality Modality Other us Provider Scanning Edited Result - Final documented in this encounter Visit Diagnoses Not on filedocumented in this encounter Additional Health Concerns Infection Onset Date Last Indicated Resolved Time COVID: Suspected 10/29/2023 10/29/2023 10/30/2023 12:05 AM PNEUMATIC TESTER MECHANIC documented as of this encounter Care Teams Box Attacher Relationship Specialty Start Date End Date Luciano Bell MD [address] [place] [address] PCP - General 11/21/16 Rosalinda Carcamo MD [address] [place] [address] Applications System Analyst Obstetrics and Gynecology 12/17/18 James Wayne DO [address] [facility] [address] [place] [address] Consulting Physician Cardiovascular Disease 07/17/21 Pal Tipton MD [address] [facility] [address] [place], [place] [address], [place] [address] Consulting Physician Cardiology 02/07/22 Kaylynn Prater MA [address] [place] [address] [address] [place] [address] ACO Care Machinist 2Nd Shift 11/02/23 11/04/23 documented as of this encounter
--- OUTSIDE RECORDS SUMMARY | 2025-03-29 08:04 | XMS_ITS | Encounter Summary ---
Author Organization [facility] Address [address] [place] [address] Phone Care Team Providers Care Electronic Wirer Name Role Phone Luciano Bell MD Primary Care Provider + [phone] Rosalinda Carcamo MD Unavailable James Wayne DO Unavailable [phone] Pal Tipton MD Unavailable Kaylynn Prater MA Unavailable [phone] Encounter Details Date Type Department Care Team (Late st Contact Info) Description 04/23/2021 Orders Only [facility] [address] [place] [address] Scanning, Provider Social History Tobacco Use Types Packs/Day Years Used Date Smoking Tobacco: Former Cigarettes Q uit: 2000 Smokeless Tobacco: Never Alcohol Use Standard Drinks/Week Comments Not Currently 0 (1 standard drink = 0.6 oz pur e alcohol) Comments No Sex and Gender Information Value Date Recorded Sex Assigned at Not on file Legal Sex Female 1:05 PM SUBCONTRACTS MANAGER Gender Identity Not on file Sexual Orientation Not on file Occupation Industry Job Start Date Job End Date homemaker Not on file Not on file Not on file documented as of this encounter Plan of Treatment Not on file documented as of this encounter Procedures Procedure Name Priority Date/Time Associated Diagnosis Comments SCAN - RADIOLOGY/IMAGING 04/23/2021 documented in this encounter Results * SCAN - RADIOLOGY/IMAGING (04/23/2021) Anatomical Region Laterality Modality Other us Provider Scanning Final Result documented in this encounter Visit Diagnoses Not on filedocumented in this encounter Additional Health Concerns Infection Onset Date Last Indicated Resolved Time COVID: Suspected 10/29/2023 10/29/2023 10/30/2023 12:05 AM SUBCONTRACTS MANAGER documented as of this encounter Care Teams Electronic Wirer Relationship Specialty Start Date End Date Luciano Bell MD [address] [place] [address] PCP - General 11/21/16 Rosalinda Carcamo MD [address] [place] [address] Charging Crane Operator Obstetrics and Gynecology 12/17/18 James Wayne DO [address] [facility] [address] [place], [place] [address] [address] Consulting Physician Cardiovascular Disease 07/17/21 Pal Tipton MD [address] [facility] [address] [place], [place] [address] [address] Consulting Physician Cardiology 02/07/22 Kaylynn Prater MA [address] [place] [address] [address] [place] [address] ACO Care Battery Assembler 11/02/23 11/04/23 documented as of this encounter
--- OUTSIDE RECORDS SUMMARY | 2025-03-29 08:04 | XMS_ITS | Clinical Summary ---
Author Organization [facility] Address [address] [place] [address] Care Team Providers Care Wheel Mill Operator Name Role Phone Unavailable Primary Care Provider Unavailabl e Social History Tobacco Use Types Packs/Day Years Used Date Smoking Tobacco: Never Assessed Comments Unknown Sex and Gender Information Value Date Recorded Sex Assigned at Not on file Legal Sex Female 10:30 PM CDT Gender Identity Not on file Sexual Orientation Not on file Plan of Treatment Health Maintenance Due Date Last Done Comments Hepatitis C Virus (HCV) Screening 1955 Cologuard 11/11/2000 Colonoscopy 11/11/2000 Colorectal Cancer Screening 11/11/2000 Immunochemical Fecal Occult Blood 11/11/2000 Pneumococcal Immunization (5 0+ years) (1 of 1 - PCV) 11/11/2005 Zoster Immunization (1 of 2) 11/11/2005 SARS-COV-2 Immunization (4 - season) 2024 08/13/2021, 11/08/2020, 10/18/2020 Influenza Immunization (#1) 2025 10/0 12/2019, 08/08/2013 Respiratory Syncytial Virus (RSV) Immunization (Adult) (1 - 1-dose 75+ series) 11/11/2030 DTaP/Tdap/Td Immunization Discontinued 08/08/2013 TdaP Immunization Completed 08/08/2013 Hepatitis B Immunization Aged Out No longer eligible based on patient's age to complete this topic Human Papillomavirus (HPV) Immunization Aged Out No longer eligible based on patient's age to complete this topic Meningococcal Immunization (ACWY) Aged Out No longer eligible based on patient's age to complete this topic Rotavirus Immunization Aged Out No lo nger eligible based on patient's age to complete this topic
--- OUTSIDE RECORDS SUMMARY | 2025-03-29 08:04 | XMS_ITS | Encounter Summary ---
Author Organization [facility] Address [address] [place] [address] Phone Care Team Providers Care Advanced Manufacturing Engineer Name Role Phone Luciano Bell MD Primary Care Provider + [phone] Rosalinda Carcamo MD Unavailable James Wayne DO Unavailable [phone] Pal Tipton MD Unavailable [phone] Kaylynn Prater MA Unavailable [phone] Encounter Details Date Type Department Care Team (Late st Contact Info) Description 02/14/2022 Orders Only [facility] [address] [place] [address] Scanning, Provider Social History Tobacco [...] more drinks on one occasion? Never 02/05/2022 Comments No Sex and Gender Information Value Date Recorded Sex Assigned at Not on file Legal Sex Female 1:05 PM DIET KITCHEN COOK Gender Identity Not on file Sexual Orientation Not on file Occupation Industry Job Start Date Job End Date homemaker Not on file Not on file Not on file documented as of this encounter Plan of Treatment Not on file documented as of this encounter Procedures Procedure Name Priority Date/Time Associated Diagnosis Comments SCAN - RADIOLOGY/IMAGING 02/14/2022 documented in this encounter Results * SCAN - RADIOLOGY/IMAGING (02/14/2022) Anatomical Region Laterality Modality Other us Provider Scanning Final Result documented in this encounter Visit Diagnoses Not on filedocumented in this encounter Additional Health Concerns Infection Onset Date Last Indicated Resolved Time COVID: Suspected 10/29/2023 10/29/2023 10/30/2023 12:05 AM DIET KITCHEN COOK documented as of this encounter Care Teams Advanced Manufacturing Engineer Relationship Specialty Start Date End Date Luciano Bell MD [address] [place] [address] PCP - General 11/21/16 Rosalinda Carcamo MD [address] [place] [address] Sr Community Manager Obstetrics and Gynecology 12/17/18 James Wayne DO [address] [facility] [address] [place] [address] Consulting Physician Cardiovascular Disease 07/17/21 Pal Tipton MD [address] [facility] [address] [place] [address] Consulting Physician Cardiology 02/07/22 Kaylynn Prater MA [address] [place] [address] [address] [place] [address] ACO Care Catalogue Illustrator 11/02/23 11/04/23 documented as of this encounter
--- OUTSIDE RECORDS SUMMARY | 2025-03-29 08:04 | XMS_ITS | Encounter Summary ---
Author Organization [facility] Healthcare Address [address] [place] [address] Care Team Providers Care Quantitative Research Analyst Name Role Phone Luciano Bell MD Primary Care Provider + [phone] Rosalinda Carcamo MD Unavailable [phone] James Wayne DO Unavailable [phone] Pal Tipton MD Unavailable + [phone] Encounter Details Date Type Department Care Team (Late st Contact Info) Description 11/11/2024 Orders Only [facility] Medical Group [facility] [address] [place] [address] Scanning, Provider Social History Tobacco [...] on file Legal Sex Female 1:05 PM TINTER PHOTOGRAPH Gender Identity Not on file Sexual Orientation Not on file Occupation Industry Job Start Date Job End Date homemaker Not on file Not on file Not on file documented as of this encounter Plan of Treatment Not on file documented as of this encounter Procedures Procedure Name Priority Date/Time Associated Diagnosis Comments SCAN - RADIOLOGY/IMAGING 11/11/2024 12:00 AM CDT documented in this encounter Results * SCAN - RADIOLOGY/IMAGING (11/11/2024 12:00 AM CDT) Anatomical Region Laterality Modality Other us Provider Scanning Final Result documented in this encounter Visit Diagnoses Not on filedocumented in this encounter Care Teams Quantitative Research Analyst Relationship Specialty Start Date End Date Luciano Bell MD [address] [place] [address] PCP - General 11/21/16 Rosalinda Carcamo MD [address] [place] [address] Financial Internship Obstetrics and Gynecology 12/17/18 James Wayne DO [address] [facility] [address] [place] [address] Consulting Physician Cardiovascular Disease 07/17/21 Pal Tipton MD [address] [facility] [address] [place] [address] Consulting Physician Cardiology 02/07/22 documented as of this encounter
== END 2025-03-29 07:59 | disposition home or self-care (01) ==
LOC: ANHLAB 08:00
PROVIDERS: PCP Internal Medicine Infectious Disease; Visit Provider Orthopaedic Surgery
DX: M17.12 Unilateral primary osteoarthritis, left knee (principal)
CPT/HCPCS: 73564